=== PATIENT | male | born 1970 | race Caucasian/White ===

== ENCOUNTER 2019-03-04 10:41 | Inpatient (IN) | payer BC, OTHER ==
[2019-03-04] MEDS: METOPROLOL 5 MG INJ IV ×2 (10:53→11:17)
[2019-03-04 11:13] LABS: ADD MAN DIFF? NO
[2019-03-04 11:15] LABS: WHITE BLOOD COUNT 10.2 10^3/ul (4.8-10.8)
[2019-03-04 11:15] LABS: BASOPHILS % 0.2 % (0.0-2.0); EOSINOPHILS # 0.2 10^3/ul (0.0-0.5); EOSINOPHILS % 1.9 % (0.0-7.0); HEMOGLOBIN 16.2 g/dl (14.0-18.0); LYMPHOCYTES # 3.7 10^3/ul (0.8-2.9); LYMPHOCYTES % 36.1 % (15.0-51.0); MEAN CORPUSCULAR HEMOGLOBIN 27.7 pg (29.0-33.0); MEAN CORPUSCULAR HGB CONC 33.8 g/dl (32.0-37.0); MEAN CORPUSCULAR VOLUME 82.1 fl (82.0-101.0); MEAN PLATELET VOLUME 9.7 fl (7.4-10.4); MONOCYTE # 0.7 10^3/ul (0.3-0.9); MONOCYTES % 6.7 % (0.0-11.0); NEUTROPHIL # 5.6 10^3/ul (1.6-7.5); NEUTROPHILS % 54.8 % (39.0-77.0); PLATELET COUNT 287 10^3/UL (140-415); RED BLOOD COUNT 5.85 10^6/ul (4.70-6.10); RED CELL DISTRIBUTION WIDTH 13.2 % (11.5-14.5)
[2019-03-04] MEDS: ONDANSETRON 4 MG INJ IV (11:16)
[2019-03-04 11:21] LABS: INR 0.89; PROTIME 12.2 Sec (11.9-14.9)
[2019-03-04 11:22] LABS: PARTIAL THROMBOPLASTIN TIME 28.5 Sec (23.0-35.0)
[2019-03-04 11:23] LABS: ANION GAP 12 (5-13); BLOOD UREA NITROGEN 19 mg/dl (7-20); CALCIUM 9.9 mg/dl (8.4-10.2); CARBON DIOXIDE 25 mmol/L (21-31); CHLORIDE 103 mmol/L (97-110); CREATININE 0.73 mg/dl (0.61-1.24); Estimated GFR > 60 mL/min (>60); GLUCOSE 212 mg/dl (70-220); POTASSIUM 4.6 mmol/L (3.5-5.1); SODIUM 140 mmol/L (135-144)
[2019-03-04] MEDS ORDERED: DILTIAZEM 25 MG INJ (11:35)
[2019-03-04 11:37] LABS: TROPONIN-I < 0.012 ng/ml (0.000-0.120)
[2019-03-04] MEDS: DILTIAZEM 25 MG INJ IV (11:42)
[2019-03-04] MEDS: ENOXAPARIN 100 MG/ML SYG SC (11:59)
[2019-03-04] MEDS ORDERED: ACETAMINOPHEN 325 MG TAB PO ×2 (12:30→13:30)
[2019-03-04] MEDS ORDERED: ONDANSETRON 4 MG INJ IV (12:30)
[2019-03-04] MEDS ORDERED: NACL 0.9% 3 ML SYG IV (13:30)
[2019-03-04] MEDS ORDERED: LORAZEPAM 2 MG INJ IV (13:30)
[2019-03-04] MEDS ORDERED: GLUCOSE GEL 15 GRAM TUBE BUCCAL (14:30)
[2019-03-04] MEDS ORDERED: GLUCOSE GEL 15 GRAM TUBE PO ×2 (14:30)
[2019-03-04] MEDS ORDERED: DEXTROSE 50% 50 ML SYRINGE IV ×2 (14:30)
[2019-03-04] MEDS ORDERED: GLUCAGON 1 MG INJ IM (14:30)
[2019-03-04 14:34] LABS: HEMOGLOBIN A1C 8.4 % (0-5.9)
[2019-03-04 15:25] LABS: FREE T4 (FREE THYROXINE) 1.17 ng/dl (0.64-1.79)
[2019-03-04] MEDS: METOPROLOL (XL) 50 MG TAB PO (15:26)
[2019-03-04 17:50] LABS: CREATINE KINASE 97 IU/L (23-200)
[2019-03-04] MEDS: INSULIN ASPART [NOVOLOG] 3 ML PEN SC ×3 (17:55→20:41)
[2019-03-04 18:01] LABS: CK INDEX 0.7; CK-MB 0.72 ng/ml (0.0-2.4); TROPONIN-I < 0.012 ng/ml (0.000-0.120)
[2019-03-04] MEDS: INSULIN GLARGINE [LANTus] (100 UNITS/ML) SYG SC (20:00)
[2019-03-04] MEDS ORDERED: METOPROLOL 25 MG TAB PO (21:00)
[2019-03-05] MEDS: INSULIN ASPART [NOVOLOG] 3 ML PEN SC ×2 (07:55)
[2019-03-05] MEDS: RIVAROXABAN 20 MG TABLET PO (08:37)
[2019-03-05] MEDS: MAGNESIUM OXIDE 400 MG TAB PO (08:37)
[2019-03-05] MEDS: METOPROLOL (XL) 50 MG TAB PO (08:39)
[2019-03-05] MEDS ORDERED: ENOXAPARIN 40 MG/0.4 ML SYG SC (09:00)
[2019-03-05] MEDS ORDERED: ASPIRIN 81 MG TAB PO (09:00)
[2019-03-05] MEDS ORDERED: METOPROLOL (XL) 50 MG TAB PO (09:00)
[2019-03-05] MEDS ORDERED: METOPROLOL (XL) 25 MG TAB PO (09:00)
[2019-03-05] MEDS ORDERED: LISINOPRIL 20 MG TAB PO (09:00)
== END 2019-03-05 09:30 | disposition home or self-care (01) | DRG 310 ==
LOC: E/R 10:41 → TEL 12:21
PROVIDERS: Internal Medicine
DX: I48.0 Paroxysmal atrial fibrillation (principal); E11.9 Type 2 diabetes mellitus without complications; I10 Essential (primary) hypertension; R11.2 Nausea with vomiting, unspecified; F41.9 Anxiety disorder, unspecified; G47.33 Obstructive sleep apnea (adult) (pediatric); E66.9 Obesity, unspecified; Z68.35 Body mass index [BMI] 35.0-35.9, adult; Z79.4 Long term (current) use of insulin; Z79.82 Long term (current) use of aspirin; Z79.01 Long term (current) use of anticoagulants
CPT/HCPCS: 36415; 71045; 80048; 82550; 82553; 82962; 83036; 84439; 84443; 84484; 85025; 85610; 85730; 93005; 93306; 96372; 96374; 96375; 99285-25